=== PATIENT | male | born 1945 | race African-American/Black ===

== ENCOUNTER 2020-09-09 19:01 | Inpatient (IN) ==
[2020-09-10] MEDS ORDERED: hydrALAZINE 20 MG/1 ML VIAL IV PRN (12:45)
[2020-09-10] MEDS ORDERED: ALBUTEROL 2.5 MG/3 ML NEB RESP TX PRN (12:45)
[2020-09-10] MEDS ORDERED: ACETAMINOPHEN 325 MG TABLET PO PRN (12:45)
[2020-09-10] MEDS ORDERED: ONDANSETRON 4 MG/2 ML VIAL IV PRN (12:45)
[2020-09-10 12:59] LABS: ABG Base Excess -4.9 MMOL/L (-2.5-2.5); ABG HCO3 20.4 MMOL/L (20-26); ABG Oxygen Saturation 99.5 % (95-100); ABG PCO2 43.8 MM HG (35-48); ABG TCO2 19.1 MMOL/L (23-27)
[2020-09-10 13:05] LABS: Basophils % 0.1 % (0.0-0.8); Hematocrit 42.1 VOL% (42.0-52.0); Hemoglobin 12.9 GM/DL (14.0-18.0); Immature Granulocytes % 0.7 %; Immature Granulocytes Absolute 0.12 #; Lymphocytes # 0.7 10*3/uL (1.4-4.0); Lymphocytes % 4.2 % (21.2-54.2); Mean Corpuscular HGB Conc 30.6 GM/DL (32-36); Mean Corpuscular Volume 92.5 FL (87-102); Monocytes % 0.9 % (1.7-12.7); NRBC # 0.03 10*3/uL; Neutrophils % 94.1 % (38.7-73.9); Platelet Count 69 T/CUMM (130-400); Red Blood Count 4.55 MC/CUMM (3.8-5.5); Red Cell Distribution Width 17.2 % (9.3-17.3); White Blood Count 17.1 T/CUMM (4-12)
[2020-09-10 13:23] LABS: Ferritin 1265.1 ng/ml (26-388)
[2020-09-10] MEDS ORDERED: PNEUMOCOCCAL VACCINE (13 VALENT) 0.5 ML SYRINGE IM ONE (13:43)
[2020-09-10 13:47] LABS: Elliptocytes Few; Lymphocytes 4 % (20-55); Segmented Neutrophils 96 % (50-85); Total Cells Counted 100
[2020-09-10 13:48] LABS: Burr Cells Few; Platelet Estimate Decreased; Polychromasia Few
[2020-09-10 13:57] LABS: Albumin 1.5 G/DL (3.4-5.0); Bilirubin,Total 0.8 MG/DL (0.2-1.0); Osmolality,Calculated 362.7 MOS/KG (273-304); Potassium 5.7 MMOL/L (3.5-5.1); Risk Ratio 4.79; Total Protein 5.1 G/DL (6.4-8.3)
[2020-09-10] MEDS ORDERED: SODIUM CHLORIDE 0.9% 1,000 ML IV ONE (14:04)
[2020-09-10 14:07] LABS: INR 1.9; PT Patient Result 20.2 SECS (9.8-11.9); Partial Thromboplastin Time 33.3 SECS (23.9-33.8)
[2020-09-10] MEDS: FAMOTIDINE 20 MG/2 ML VIAL IV SCH (14:40)
[2020-09-10] MEDS: DEXAMETHASONE 4 MG/1 ML VIAL IV SCH (14:40)
[2020-09-10] MEDS: cefTRIAXone 1,000 MG in SYRINGE 1 EACH IV SCH (14:40)
[2020-09-10] MEDS: HEPARIN DRIP 25,000 UNITS/500 ML PREMIX IV SCH (14:41)
[2020-09-10] MEDS: LACTATED RINGERS 1,000 ML IV SCH (14:56)
[2020-09-10] MEDS: AZITHROMYCIN INJ 250 MG in SODIUM CHLORIDE 0.9% 250 ML IV SCH (14:59)
[2020-09-10] MEDS: INSULIN LISPRO 100 UNIT/ML SUBCUT SCH ×2 (16:16→20:10)
[2020-09-10] MEDS ORDERED: SODIUM POLYSTYRENE SULFATE 15 GM/60 ML BOTTLE PO PRN (16:35)
[2020-09-10] MEDS ORDERED: GLUCAGON 1 MG VIAL IM PRN (16:37)
[2020-09-10] MEDS ORDERED: DEXTROSE 50% 25 GM/50 ML VIAL IV PRN (16:37)
[2020-09-10] MEDS: INSULIN GLARGINE 100 UNIT/ML SUBCUT SCH (20:15)
[2020-09-10] MEDS: SODIUM BICARBONATE 650 MG TABLET PO SCH (20:16)
[2020-09-11] MEDS: INSULIN LISPRO 100 UNIT/ML SUBCUT SCH ×5 (01:08→15:11)
[2020-09-11] MEDS: LACTATED RINGERS 1,000 ML IV SCH (01:24)
[2020-09-11] MEDS: FAMOTIDINE 20 MG/2 ML VIAL IV SCH ×2 (01:24→09:36)
[2020-09-11 04:12] LABS: ABG Base Excess -10.8 MMOL/L (-2.5-2.5); ABG HCO3 14.9 MMOL/L (20-26); ABG Oxygen Saturation 95.8 % (95-100); ABG PCO2 32.9 MM HG (35-48); ABG PH 7.275 (7.35-7.45); ABG TCO2 15.9 MMOL/L (23-27)
[2020-09-11 04:20] LABS: Basophils % 0.1 % (0.0-0.8); Hematocrit 40.1 VOL% (42.0-52.0); Hemoglobin 12.2 GM/DL (14.0-18.0); Immature Granulocytes % 0.8 %; Immature Granulocytes Absolute 0.16 #; Lymphocytes # 0.7 10*3/uL (1.4-4.0); Lymphocytes % 3.5 % (21.2-54.2); Mean Corpuscular HGB Conc 30.4 GM/DL (32-36); Monocytes % 1.6 % (1.7-12.7); NRBC # 0.06 10*3/uL; Red Blood Count 4.31 MC/CUMM (3.8-5.5); Red Cell Distribution Width 17.3 % (9.3-17.3); White Blood Count 19.3 T/CUMM (4-12)
[2020-09-11 04:21] LABS: Platelet Count 108 T/CUMM (130-400)
[2020-09-11 04:34] LABS: Calcium 7.2 MG/DL (8.5-10.1); Osmolality,Calculated 377.1 MOS/KG (273-304); Potassium 5.8 MMOL/L (3.5-5.1)
[2020-09-11 04:42] LABS: Lymphocytes 1 % (20-55); Platelet Estimate Decreased; Segmented Neutrophils 95 % (50-85); Total Cells Counted 100
[2020-09-11] MEDS ORDERED: INSULIN REGULAR 100 UNIT/ML IV ONE ×2 (05:01→08:50)
[2020-09-11] MEDS ORDERED: SODIUM CHLORIDE 0.9% 500 ML IV ONE ×2 (05:01→13:50)
[2020-09-11] MEDS: CHOLECALCIFEROL 1,000 UNIT TABLET PO SCH (08:13)
[2020-09-11] MEDS: ZINC GLUCONATE 50 MG TABLET PO SCH (08:13)
[2020-09-11] MEDS: DEXAMETHASONE 4 MG/1 ML VIAL IV SCH (08:13)
[2020-09-11] MEDS: ASCORBIC ACID 500 MG TABLET PO SCH (08:13)
[2020-09-11] MEDS: SODIUM BICARBONATE 650 MG TABLET PO SCH (08:13)
[2020-09-11] MEDS ORDERED: SODIUM BICARB INJ 100 MEQ in STERILE WATER INJ 400 ML IV PRN (08:50)
[2020-09-11] MEDS ORDERED: SODIUM CHLORIDE 0.9% IV PRN (08:50)
[2020-09-11] MEDS ORDERED: POTASSIUM CHLORIDE RIDER 10 MEQ in PREMIX 1 EACH IV PRN (08:50)
[2020-09-11] MEDS ORDERED: SODIUM PHOSPHATE IV PRN (08:50)
[2020-09-11] MEDS ORDERED: MAGNESIUM SULF RIDER 4 GM in PREMIX 1 EACH IV PRN (08:50)
[2020-09-11] MEDS ORDERED: MAGNESIUM SULF RIDER 2 GM in PREMIX 1 EACH IV PRN (08:50)
[2020-09-11] MEDS: SODIUM BICARB INJ 100 MEQ in STERILE WATER INJ 1,000 ML IV SCH ×2 (09:37→20:37)
[2020-09-11] MEDS: INSULIN REGULAR DRIP 100 ML IV SCH ×2 (09:40→22:31)
[2020-09-11 11:00] LABS: Calcium 6.8 MG/DL (8.5-10.1); Osmolality,Calculated 375.4 MOS/KG (273-304); Potassium 5.4 MMOL/L (3.5-5.1)
[2020-09-11] MEDS ORDERED: SODIUM POLYSTYRENE SULFATE 15 GM/60 ML BOTTLE PER TUBE ONE (11:16)
[2020-09-11] MEDS: HEPARIN DRIP 25,000 UNITS/500 ML PREMIX IV SCH ×2 (12:20→14:10)
[2020-09-11] MEDS: cefTRIAXone 1,000 MG in SYRINGE 1 EACH IV SCH (12:33)
[2020-09-11 13:10] LABS: Calcium 6.9 MG/DL (8.5-10.1); Osmolality,Calculated 370.4 MOS/KG (273-304); Potassium 5.2 MMOL/L (3.5-5.1)
[2020-09-11] MEDS: AZITHROMYCIN INJ 250 MG in SODIUM CHLORIDE 0.9% 250 ML IV SCH (14:25)
[2020-09-11 18:03] LABS: Calcium 6.8 MG/DL (8.5-10.1); Osmolality,Calculated 370.9 MOS/KG (273-304); Potassium 4.7 MMOL/L (3.5-5.1)
[2020-09-11 20:59] LABS: Calcium 6.7 MG/DL (8.5-10.1); Osmolality,Calculated 363.1 MOS/KG (273-304); Potassium 4.4 MMOL/L (3.5-5.1)
[2020-09-11] MEDS: INSULIN GLARGINE 100 UNIT/ML SUBCUT SCH (22:28)
[2020-09-11] MEDS: SODIUM BICARB INJ 100 MEQ in DEXTROSE 5% 1,000 ML IV SCH (23:05)
[2020-09-12 01:37] LABS: Calcium 6.7 MG/DL (8.5-10.1); Potassium 4.1 MMOL/L (3.5-5.1)
[2020-09-12] MEDS ORDERED: SODIUM CHLORIDE 0.45% 1,000 ML IV SCH (01:50)
[2020-09-12 04:51] LABS: ABG Base Excess -4.3 MMOL/L (-2.5-2.5); ABG HCO3 20.8 MMOL/L (20-26); ABG Oxygen Saturation 96.3 % (95-100); ABG PCO2 35.5 MM HG (35-48); ABG PH 7.367 (7.35-7.45); ABG PO2 88.1 MM HG (80-95); ABG TCO2 18.4 MMOL/L (23-27)
[2020-09-12 04:58] LABS: Basophils % 0.1 % (0.0-0.8); Hematocrit 35.1 VOL% (42.0-52.0); Hemoglobin 10.9 GM/DL (14.0-18.0); Immature Granulocytes % 0.8 %; Immature Granulocytes Absolute 0.13 #; Lymphocytes # 0.6 10*3/uL (1.4-4.0); Lymphocytes % 3.7 % (21.2-54.2); Mean Corpuscular HGB Conc 31.1 GM/DL (32-36); Mean Corpuscular Volume 90.2 FL (87-102); Monocytes % 2.8 % (1.7-12.7); NRBC # 0.06 10*3/uL; Neutrophils % 92.6 % (38.7-73.9); Platelet Count 105 T/CUMM (130-400); Red Blood Count 3.89 MC/CUMM (3.8-5.5); Red Cell Distribution Width 17.2 % (9.3-17.3); White Blood Count 16.2 T/CUMM (4-12)
[2020-09-12 05:21] LABS: Calcium 6.6 MG/DL (8.5-10.1); Potassium 4.2 MMOL/L (3.5-5.1)
[2020-09-12 05:27] LABS: Hypochromasia Slight; Lymphocytes 2 % (20-55); Nucleated Red Blood Cells 2 (0-5); Platelet Estimate Adequate; Segmented Neutrophils 97 % (50-85); Total Cells Counted 100
[2020-09-12] MEDS: DEXAMETHASONE 4 MG/1 ML VIAL IV SCH (08:05)
[2020-09-12] MEDS: FAMOTIDINE 20 MG/2 ML VIAL IV SCH (08:06)
[2020-09-12] MEDS: CHOLECALCIFEROL 1,000 UNIT TABLET PO SCH (08:07)
[2020-09-12] MEDS: ZINC GLUCONATE 50 MG TABLET PO SCH (08:07)
[2020-09-12] MEDS: ASCORBIC ACID 500 MG TABLET PO SCH (08:07)
[2020-09-12] MEDS: INSULIN REGULAR DRIP 100 ML IV SCH ×2 (10:28→14:09)
[2020-09-12] MEDS: CALCIUM CARBONATE CHEW 500 MG TABLET PO SCH ×2 (10:30→21:58)
[2020-09-12] MEDS: SODIUM BICARB INJ 100 MEQ in DEXTROSE 5% 1,000 ML IV SCH (10:51)
[2020-09-12] MEDS: HEPARIN DRIP 25,000 UNITS/500 ML PREMIX IV SCH ×2 (11:26→14:05)
[2020-09-12] MEDS: cefTRIAXone 1,000 MG in SYRINGE 1 EACH IV SCH (12:32)
[2020-09-12] MEDS: AZITHROMYCIN INJ 250 MG in SODIUM CHLORIDE 0.9% 250 ML IV SCH (14:46)
[2020-09-12 15:55] LABS: Calcium 6.5 MG/DL (8.5-10.1); Osmolality,Calculated 357.6 MOS/KG (273-304); Potassium 4.1 MMOL/L (3.5-5.1)
[2020-09-12] MEDS: INSULIN LISPRO 100 UNIT/ML SUBCUT SCH ×2 (18:17→22:36)
[2020-09-12] MEDS: INSULIN GLARGINE 100 UNIT/ML SUBCUT SCH (21:58)
[2020-09-12] MEDS: SODIUM BICARB INJ 100 MEQ in STERILE WATER INJ 1,000 ML IV SCH (23:52)
[2020-09-13] MEDS: INSULIN LISPRO 100 UNIT/ML SUBCUT SCH ×6 (00:54→21:02)
[2020-09-13 04:32] LABS: Basophils % 0.1 % (0.0-0.8); Eosinophils % 0.1 % (0.00-10.9); Hematocrit 30.8 VOL% (42.0-52.0); Immature Granulocytes % 1.8 %; Immature Granulocytes Absolute 0.24 #; Lymphocytes # 0.6 10*3/uL (1.4-4.0); Lymphocytes % 4.7 % (21.2-54.2); Mean Corpuscular HGB Conc 32.5 GM/DL (32-36); Mean Corpuscular Volume 87.7 FL (87-102); Monocytes % 4.8 % (1.7-12.7); NRBC # 0.09 10*3/uL; Neutrophils % 88.5 % (38.7-73.9); Red Blood Count 3.51 MC/CUMM (3.8-5.5); Red Cell Distribution Width 17.3 % (9.3-17.3); White Blood Count 13.3 T/CUMM (4-12)
[2020-09-13 04:33] LABS: ABG Base Excess -4.2 MMOL/L (-2.5-2.5); ABG HCO3 20.9 MMOL/L (20-26); ABG Oxygen Saturation 95.4 % (95-100); ABG PCO2 32.3 MM HG (35-48); ABG PH 7.397 (7.35-7.45); ABG PO2 83.3 MM HG (80-95); ABG TCO2 18.2 MMOL/L (23-27); Platelet Count 99 T/CUMM (130-400)
[2020-09-13] MEDS: SODIUM BICARB INJ 100 MEQ in STERILE WATER INJ 1,000 ML IV SCH (04:42)
[2020-09-13 04:49] LABS: Calcium 6.3 MG/DL (8.5-10.1); Osmolality,Calculated 360.8 MOS/KG (273-304); Potassium 3.8 MMOL/L (3.5-5.1)
[2020-09-13 04:54] LABS: Lymphocytes 4 % (20-55); Nucleated Red Blood Cells 2 (0-5); Platelet Estimate Decreased; Segmented Neutrophils 95 % (50-85); Total Cells Counted 100
[2020-09-13 04:55] LABS: Hypochromasia Slight
[2020-09-13 04:57] LABS: Free T4 (Free Thyroxine) 0.52 NG/DL (0.76-1.46)
[2020-09-13] MEDS ORDERED: POTASSIUM CHLORIDE RIDER 20 MEQ in PREMIX 1 EACH IV PRN (07:45)
[2020-09-13] MEDS: CALCIUM CARBONATE CHEW 500 MG TABLET PO SCH ×2 (08:45→21:02)
[2020-09-13] MEDS: ZINC GLUCONATE 50 MG TABLET PO SCH (08:46)
[2020-09-13] MEDS: CHOLECALCIFEROL 1,000 UNIT TABLET PO SCH (08:46)
[2020-09-13] MEDS: ASCORBIC ACID 500 MG TABLET PO SCH (08:46)
[2020-09-13] MEDS: FAMOTIDINE 20 MG/2 ML VIAL IV SCH (08:47)
[2020-09-13] MEDS: DEXAMETHASONE 4 MG/1 ML VIAL IV SCH (08:47)
[2020-09-13] MEDS: SODIUM BICARBONATE 650 MG TABLET PO SCH ×2 (08:52→21:02)
[2020-09-13] MEDS: HEPARIN DRIP 25,000 UNITS/500 ML PREMIX IV SCH ×2 (10:49→14:01)
[2020-09-13] MEDS: cefTRIAXone 1,000 MG in SYRINGE 1 EACH IV SCH (12:30)
[2020-09-13] MEDS: AZITHROMYCIN INJ 250 MG in SODIUM CHLORIDE 0.9% 250 ML IV SCH (15:59)
[2020-09-13] MEDS ORDERED: FUROSEMIDE INJ 160 MG in SODIUM CHLORIDE 0.9% 50 ML IV ONE (17:50)
[2020-09-13] MEDS: INSULIN GLARGINE 100 UNIT/ML SUBCUT SCH (21:03)
[2020-09-14] MEDS: INSULIN LISPRO 100 UNIT/ML SUBCUT SCH ×7 (01:00→23:52)
[2020-09-14 04:26] LABS: ABG Base Excess -2.6 MMOL/L (-2.5-2.5); ABG HCO3 22.1 MMOL/L (20-26); ABG Oxygen Saturation 90.6 % (95-100); ABG PCO2 34.5 MM HG (35-48); ABG PH 7.404 (7.35-7.45); ABG PO2 65.1 MM HG (80-95); ABG TCO2 19.9 MMOL/L (23-27)
[2020-09-14 04:42] LABS: Eosinophils % 0.2 % (0.00-10.9); Hemoglobin 8.8 GM/DL (14.0-18.0); Immature Granulocytes Absolute 0.13 #; Lymphocytes # 0.9 10*3/uL (1.4-4.0); Lymphocytes % 6.9 % (21.2-54.2); Mean Corpuscular HGB Conc 31.4 GM/DL (32-36); Mean Corpuscular Volume 87.5 FL (87-102); Monocytes % 5.2 % (1.7-12.7); NRBC # 0.04 10*3/uL; Neutrophils % 86.7 % (38.7-73.9); Platelet Count 101 T/CUMM (130-400); Red Cell Distribution Width 17.5 % (9.3-17.3); White Blood Count 12.9 T/CUMM (4-12)
[2020-09-14 05:00] LABS: Calcium 6.5 MG/DL (8.5-10.1); Osmolality,Calculated 364.6 MOS/KG (273-304)
[2020-09-14 05:12] LABS: Band Neutrophils 1 % (0-10); Hypochromasia Slight; Lymphocytes 3 % (20-55); Nucleated Red Blood Cells 2 (0-5); Platelet Estimate Adequate; Segmented Neutrophils 94 % (50-85); Total Cells Counted 100
[2020-09-14 07:05] LABS: Total Protein (Chem) 4.6 G/DL (6.4-8.3)
[2020-09-14] MEDS: DEXAMETHASONE 4 MG/1 ML VIAL IV SCH (08:16)
[2020-09-14] MEDS: CHOLECALCIFEROL 1,000 UNIT TABLET PO SCH (08:16)
[2020-09-14] MEDS: ASCORBIC ACID 500 MG TABLET PO SCH (08:17)
[2020-09-14] MEDS: ZINC GLUCONATE 50 MG TABLET PO SCH (08:17)
[2020-09-14] MEDS: CALCIUM CARBONATE CHEW 500 MG TABLET PO SCH ×2 (08:17→20:22)
[2020-09-14] MEDS: SODIUM BICARBONATE 650 MG TABLET PO SCH ×2 (08:17→20:22)
[2020-09-14] MEDS: FAMOTIDINE 20 MG/2 ML VIAL IV SCH (08:18)
[2020-09-14] MEDS: HEPARIN DRIP 25,000 UNITS/500 ML PREMIX IV SCH ×2 (08:50→14:01)
[2020-09-14 09:10] LABS: Albumin (SPE) 1.9 G/DL (3.2-5.3); Albumin (SPE) Rel % 40.8 %; Alpha 1 (SPE) 0.3 G/DL (0.1-0.4); Alpha 1 (SPE) Rel % 7.1 %; Alpha 2 (SPE) 0.9 G/DL (0.4-1.0); Alpha 2 (SPE) Rel % 19.7 %; Beta (SPE) 0.7 G/DL (0.5-1.1); Beta (SPE) Rel % 15.5 %; Gamma (SPE) 0.8 G/DL (0.7-1.7); Gamma (SPE) Rel % 16.9 %
[2020-09-14 09:19] LABS: Albumin (UPER) Rel% 62.8 %; Alpha 1 (UPER) Rel% 3.1 %; Alpha 2 (UPER) Rel % 3.8 %; Beta (UPER) Rel % 12.3 %
[2020-09-14 09:24] LABS: Albumin (UPER) 45.2 MG/DL; Alpha 1 (UPER) 2.2 MG/DL; Alpha 2 (UPER) 2.7 MG/DL; Beta (UPER) 8.9 MG/DL
[2020-09-14] MEDS: cefTRIAXone 1,000 MG in SYRINGE 1 EACH IV SCH (13:35)
[2020-09-14] MEDS: AZITHROMYCIN INJ 250 MG in SODIUM CHLORIDE 0.9% 250 ML IV SCH (14:44)
[2020-09-14] MEDS: INSULIN GLARGINE 100 UNIT/ML SUBCUT SCH (20:24)
[2020-09-15 02:21] LABS: Basophils % 0.1 % (0.0-0.8); Eosinophils % 0.1 % (0.00-10.9); Hematocrit 23.8 VOL% (42.0-52.0); Hemoglobin 7.5 GM/DL (14.0-18.0); Immature Granulocytes % 1.6 %; Immature Granulocytes Absolute 0.25 #; Lymphocytes # 0.7 10*3/uL (1.4-4.0); Lymphocytes % 4.6 % (21.2-54.2); Mean Corpuscular HGB Conc 31.5 GM/DL (32-36); Mean Corpuscular Volume 89.8 FL (87-102); Monocytes % 5.5 % (1.7-12.7); NRBC # 0.02 10*3/uL; Neutrophils % 88.1 % (38.7-73.9); Platelet Count 125 T/CUMM (130-400); Red Blood Count 2.65 MC/CUMM (3.8-5.5); White Blood Count 15.4 T/CUMM (4-12)
[2020-09-15 02:36] LABS: Calcium 6.5 MG/DL (8.5-10.1); Osmolality,Calculated 367.8 MOS/KG (273-304); Potassium 4.3 MMOL/L (3.5-5.1)
[2020-09-15 03:04] LABS: Lymphocytes 7 % (20-55); Segmented Neutrophils 88 % (50-85); Total Cells Counted 100
[2020-09-15 03:08] LABS: Hypochromasia 2+; Platelet Estimate Normal
[2020-09-15 03:09] LABS: Burr Cells 1+; Helmet Cells Few; Microcytosis 1+; Schistocytes Few
[2020-09-15] MEDS: INSULIN LISPRO 100 UNIT/ML SUBCUT SCH ×6 (04:07→23:59)
[2020-09-15] MEDS: HEPARIN DRIP 25,000 UNITS/500 ML PREMIX IV SCH ×2 (06:55→15:12)
[2020-09-15 07:02] LABS: ABG Base Excess -5.1 MMOL/L (-2.5-2.5); ABG HCO3 20.1 MMOL/L (20-26); ABG Oxygen Saturation 98.5 % (95-100); ABG PCO2 39.1 MM HG (35-48); ABG PH 7.326 (7.35-7.45); ABG TCO2 19.5 MMOL/L (23-27)
[2020-09-15] MEDS: ASCORBIC ACID 500 MG TABLET PO SCH (08:50)
[2020-09-15] MEDS: CALCIUM CARBONATE CHEW 500 MG TABLET PO SCH ×2 (08:50→20:18)
[2020-09-15] MEDS: CHOLECALCIFEROL 1,000 UNIT TABLET PO SCH (08:50)
[2020-09-15] MEDS: SODIUM BICARBONATE 650 MG TABLET PO SCH (08:50)
[2020-09-15] MEDS: ZINC GLUCONATE 50 MG TABLET PO SCH (08:50)
[2020-09-15] MEDS: DEXAMETHASONE 4 MG/1 ML VIAL IV SCH (08:51)
[2020-09-15] MEDS: FAMOTIDINE 20 MG/2 ML VIAL IV SCH (08:52)
[2020-09-15] MEDS: cefTRIAXone 1,000 MG in SYRINGE 1 EACH IV SCH (14:00)
[2020-09-15 14:43] LABS: Hemoglobin 6.2 GM/DL (14.0-18.0)
[2020-09-15] MEDS ORDERED: SODIUM CHLORIDE 0.9% 1,000 ML IV PRN (14:52)
[2020-09-15] MEDS: AZITHROMYCIN INJ 250 MG in SODIUM CHLORIDE 0.9% 250 ML IV SCH (14:53)
[2020-09-15] MEDS ORDERED: HEPARIN 10,000 UNIT/10 ML VIAL IV SCH (15:30)
[2020-09-15] MEDS ORDERED: fentaNYL 25 MCG/HR PATCH TRANSDERM SCH (15:30)
[2020-09-15 16:14] LABS: Hepatitis B Core IgM Quant 0.11 Index; Hepatitis B Surface Ag Quant < 0.10 Index; Hepatitis B Surface Ag Result Non-Reactive (NonReactive); Hepatitis C Virus Ab Quant 0.07 Index; Hepatitis C Virus Ab Result Non-Reactive (NonReactive)
[2020-09-15 20:37] VITALS: BP 128/64
[2020-09-15] MEDS ORDERED: INSULIN GLARGINE 100 UNIT/ML SUBCUT SCH (21:00)
[2020-09-16 03:20] LABS: Basophils % 0.1 % (0.0-0.8); Eosinophils % 0.2 % (0.00-10.9); Hematocrit 20.8 VOL% (42.0-52.0); Hemoglobin 6.6 GM/DL (14.0-18.0); Immature Granulocytes Absolute 0.28 #; Lymphocytes # 0.7 10*3/uL (1.4-4.0); Lymphocytes % 5.3 % (21.2-54.2); Mean Corpuscular HGB Conc 31.7 GM/DL (32-36); Mean Corpuscular Volume 87.8 FL (87-102); Mean Platelet Volume 13.5 FL (9.6-12.0); Monocytes % 7.3 % (1.7-12.7); Neutrophils % 85.1 % (38.7-73.9); Platelet Count 136 T/CUMM (130-400); Red Blood Count 2.37 MC/CUMM (3.8-5.5); Red Cell Distribution Width 17.2 % (9.3-17.3); White Blood Count 13.9 T/CUMM (4-12)
[2020-09-16 03:31] LABS: INR 1.2; PT Patient Result 12.4 SECS (9.8-11.9); Partial Thromboplastin Time 25.7 SECS (23.9-33.8)
[2020-09-16 03:36] LABS: Calcium 6.7 MG/DL (8.5-10.1); Osmolality,Calculated 352.6 MOS/KG (273-304); Potassium 4.3 MMOL/L (3.5-5.1)
[2020-09-16 04:05] LABS: Lymphocytes 8 % (20-55); Platelet Estimate Normal; Segmented Neutrophils 87 % (50-85); Total Cells Counted 100
[2020-09-16 04:06] LABS: Hypochromasia 1+
[2020-09-16 04:21] LABS: Allen Test Positive; Pt O2 Delivery Device Ventilator
[2020-09-16 04:22] LABS: ABG Base Excess -3.4 MMOL/L (-2.5-2.5); ABG HCO3 21.5 MMOL/L (20-26); ABG Oxygen Saturation 96.6 % (95-100); ABG PH 7.355 (7.35-7.45); ABG PO2 96.1 MM HG (80-95); ABG TCO2 20.6 MMOL/L (23-27)
[2020-09-16] MEDS: INSULIN LISPRO 100 UNIT/ML SUBCUT SCH ×5 (04:37→21:04)
[2020-09-16] MEDS: FAMOTIDINE 20 MG/2 ML VIAL IV SCH (08:04)
[2020-09-16] MEDS: CALCIUM CARBONATE CHEW 500 MG TABLET PO SCH ×2 (08:04→20:04)
[2020-09-16] MEDS: CHOLECALCIFEROL 1,000 UNIT TABLET PO SCH (08:04)
[2020-09-16] MEDS: ASCORBIC ACID 500 MG TABLET PO SCH (08:04)
[2020-09-16] MEDS: ZINC GLUCONATE 50 MG TABLET PO SCH (08:04)
[2020-09-16] MEDS: DEXAMETHASONE 4 MG/1 ML VIAL IV SCH (08:05)
[2020-09-16] MEDS: cefTRIAXone 1,000 MG in SYRINGE 1 EACH IV SCH (14:48)
[2020-09-16] MEDS: AZITHROMYCIN INJ 250 MG in SODIUM CHLORIDE 0.9% 250 ML IV SCH (14:54)
[2020-09-17] MEDS: INSULIN LISPRO 100 UNIT/ML SUBCUT SCH ×5 (01:00→16:25)
[2020-09-17 03:41] LABS: ABG Base Excess -3.5 MMOL/L (-2.5-2.5); ABG HCO3 21.3 MMOL/L (20-26); ABG Oxygen Saturation 96.9 % (95-100); ABG PCO2 36.6 MM HG (35-48); ABG PH 7.383 (7.35-7.45); ABG PO2 103.9 MM HG (80-95); ABG TCO2 22.4 MMOL/L (23-27)
[2020-09-17 05:07] LABS: Basophils % 0.1 % (0.0-0.8); Eosinophils % 0.3 % (0.00-10.9); Lymphocytes # 0.6 10*3/uL (1.4-4.0); Lymphocytes % 5.7 % (21.2-54.2); Mean Corpuscular HGB Conc 31.4 GM/DL (32-36); Mean Corpuscular Volume 90.5 FL (87-102); Mean Platelet Volume 13.9 FL (9.6-12.0); Monocytes % 6.6 % (1.7-12.7); Neutrophils % 85.3 % (38.7-73.9); Platelet Count 168 T/CUMM (130-400); Red Cell Distribution Width 17.4 % (9.3-17.3); White Blood Count 10.2 T/CUMM (4-12)
[2020-09-17 05:09] LABS: Hematocrit 17.2 VOL% (42.0-52.0); Hemoglobin 5.4 GM/DL (14.0-18.0)
[2020-09-17 05:24] LABS: Calcium 6.9 MG/DL (8.5-10.1); Osmolality,Calculated 328.3 MOS/KG (273-304); Potassium 4.5 MMOL/L (3.5-5.1)
[2020-09-17 05:27] LABS: Alanine Aminotransferase 84 U/L (16-61); Albumin 0.9 G/DL (3.4-5.0); Alkaline Phosphatase 90 U/L (45-117); Aspartate Amino Transferase 93 U/L (0-37); Bilirubin,Total < 0.39 MG/DL (0.2-1.0); Blood Urea Nitrogen 139 MG/DL (7-18); Calcium 6.7 MG/DL (8.5-10.1); Carbon Dioxide 23 MMOL/L (21-32); Estimated Glom Filtration Rate 9 ML/MIN; Glucose 149 MG/DL (74-106); Potassium 4.7 MMOL/L (3.5-5.1); Sodium 143 MMOL/L (136-145); Total Protein 3.7 G/DL (6.4-8.3)
[2020-09-17 05:33] LABS: Hypochromasia 2+; Lymphocytes 4 % (20-55); Microcytosis 1+; Platelet Estimate Adequate; Segmented Neutrophils 92 % (50-85); Total Cells Counted 100
[2020-09-17] MEDS ORDERED: NOREPINEPHRINE 8 MG in SODIUM CHLORIDE 0.9% 242 ML IV PRN (07:21)
[2020-09-17] MEDS: ZINC GLUCONATE 50 MG TABLET PO SCH (08:22)
[2020-09-17] MEDS: DEXAMETHASONE 4 MG/1 ML VIAL IV SCH ×2 (08:23→16:23)
[2020-09-17] MEDS: ASCORBIC ACID 500 MG TABLET PO SCH (08:23)
[2020-09-17] MEDS: CHOLECALCIFEROL 1,000 UNIT TABLET PO SCH (08:23)
[2020-09-17] MEDS: CALCIUM CARBONATE CHEW 500 MG TABLET PO SCH (08:23)
[2020-09-17] MEDS: FAMOTIDINE 20 MG/2 ML VIAL IV SCH (08:24)
[2020-09-17] MEDS ORDERED: MORPHINE 4 MG/1 ML VIAL IV ONE (15:27)
[2020-09-17] MEDS ORDERED: LORazepam 2 MG/1 ML VIAL IV ONE (15:27)
[2020-09-17] MEDS: cefTRIAXone 1,000 MG in SYRINGE 1 EACH IV SCH (16:23)
[2020-09-17] MEDS: AZITHROMYCIN INJ 250 MG in SODIUM CHLORIDE 0.9% 250 ML IV SCH (16:23)
== END 2020-09-17 16:03 | disposition expired | DRG 870 ==
LOC: SUATTDRO 09-10 12:38 → N.CC 09-10 12:38
PROVIDERS: ADMIT Internal Medicine; ATTEND Family Medicine